=== PATIENT | male | born 1945 | race Two or more races ===

== ENCOUNTER 2019-09-26 08:06 | Outpatient (CLI) | payer OTHER | END 2019-09-26 10:46 | disposition home or self-care (01) | LOC: NUCLEAR 08:06 | DX: M06.89 Other specified rheumatoid arthritis, multiple sites (principal); I21.4 Non-ST elevation (NSTEMI) myocardial infarction; R55 Syncope and collapse; J84.89 Other specified interstitial pulmonary diseases | CPT/HCPCS: 78452; 93017; A9500; J0153 ==